=== PATIENT | male | born 1975 | race Caucasian/White ===

== ENCOUNTER 2017-05-16 07:57 | Day surgery (SDC) | payer BC ==
[~2017-05-16 07:57] MED LIST: RINGER'S SOLUTION,LACTATED 1,000 ML IV PRN; ceFAZolin SODIUM 2 GM in DEXTROSE 5 % IN WATER 50 ML IV PRN
[2017-05-16] MEDS ORDERED: RINGER'S SOLUTION,LACTATED 1,000 ML IV ONE ×2 (08:32→09:47)
[2017-05-16] MEDS ORDERED: LIDOCAINE HCL/EPINEPHRINE 30 ML VIAL IJ ONE (09:15)
[2017-05-16] MEDS ORDERED: BUPIVACAINE HCL 50 ML VIAL IJ ONE (09:15)
--- NOTE | 2017-05-16 10:10 | OR ---
Operative Report - Dictated Report Narrative: Date: 05/16/2017 Preop dx: Umbilical hernia, reducible Postop dx: Same Procedure: Repair umbilical hernia with small ventralex patch Staff surgeon: Kenney Chan MD Asst surgeon: Joo Holley, Dima Anesthesia: local/mac EBL: minimal Specimens: none Description: The patient was placed in the supine position and the abdomen was prepped and draped in a sterile fashion. Field block was performed and a supraumbilical incision was carried out. The hernia sac was isolated and opened and excised at the rim. A small ventralex patch was deployed intraperitoneal position. The tails were cut to length to wrap around the fascial rim. The prosthesis was secured with a circumferential running whip stitch of 3-0 prolene. The incision was closed with a subcuticular 4-0 vicryl and sealed with dermabond. The patient tolerated the procedure well and was discharged from the operating room in stable condition.
[2017-05-16] MEDS ORDERED: HYDROcodone/ACETAMINOPHEN 1 EACH TABLET PO PRN (10:27)
[2017-05-16 11:23] VITALS: BP 116/69
== END 2017-05-16 07:58 | disposition home or self-care (01) ==
LOC: AMB 07:57
PROVIDERS: ATTEND Specialist
PROC: 0WUF0JZ Supplement Abdominal Wall with Synthetic Substitute, Open Approach (ICD-10-PCS; principal; 2017-05-16 09:00)
DX: K42.9 Umbilical hernia without obstruction or gangrene (principal); G40.909 Epilepsy, unspecified, not intractable, without status epilepticus; Z68.24 Body mass index [BMI] 24.0-24.9, adult